=== PATIENT | male | born 1940 ===

== ENCOUNTER 2017-11-04 19:14 | Emergency (ER) | payer MEDICARE ==
--- NOTE | 2017-11-04 20:19 | C.PDOC ---
History Of Present Illness 77-year-old male, whose PMHx includes HTN, presents to the ED for evaluation of injuries to his left frontal and left elbow areas after he sustained a fall at home earlier today. This incident is patient's 5th fall at home within the past month. Patient is currently being evaluated by Dr. Christian from [facility] for advanced dementia. Patient has history of hyponatremia; his recent bloodwork done by Dr. Broussard (Urologist) showed Sodium level of 125. As per his at bedside, patient took his HTN medication this morning. Patient denies loss of consciousness, nausea, vomiting. - HPI Time Seen by Provider: 11/04/17 19:41 Chief Complaint (Nursing): Headache History Per: Patient, Family History/Exam Limitations: no limitations Onset/Duration Of Symptoms: Hrs Injury Occurred (Timing): Just Before Arrival Location Of Injury: Left: Elbow, Head (frontal ) Additional History Per: Patient, Family Past Medical History Reviewed: Historical Data, Nursing Documentation, Vital Signs Vital Signs: Last Vital Signs Temp 98.9 F 11/04/17 19:51 Pulse 110 H 11/04/17 20:33 Resp 16 11/04/17 20:33 BP 166/81 H 11/04/17 20:33 Pulse Ox 97 11/04/17 20:35 - Medical History PMH: Dementia, HTN Surgical History: Cholecystectomy Family History: States: Unknown Family Hx - Social History Hx Alcohol Use: No Hx Substance Use: No - Immunization History Hx Influenza Vaccination: Yes Hx Pneumococcal Vaccination: Yes Review Of Systems Gastrointestinal: Negative for: Nausea, Vomiting Skin: Positive for: Other (injuries to left frontal and left elbow areas after fall ) Neurological: Negative for: Other (LOC ) Physical Exam - Physical Exam Appears: Non-toxic, No Acute Distress, Other (mask-like facial appearance ) Skin: Normal Color, Warm, Dry Head: No Swelling, No Laceration, Other (4x4cm superficial contusion to left frontal area. no active bleeding. ) Eye(s): bilateral: Normal Inspection, PERRL, EOMI Oral Mucosa: Moist Neck: Normal ROM, Supple Chest: Symmetrical, No Deformity, No Tenderness Cardiovascular: Rhythm Regular, No Murmur Respiratory: Normal Breath Sounds, No Rales, No Rhonchi, No Wheezing Gastrointestinal/Abdominal: Soft, No Tenderness Extremity: Tenderness (left elbow ), Capillary Refill (less than 2 seconds ), Deformity (left elbow ), Other (2/4 pitting edema to bilateral lower extremities ) Neurological/Psych: Other (awake, alert, oriented ) ED Course And Treatment - Laboratory Results Result Diagrams: 11/04/17 21:00 11/04/17 21:00 Lab Interpretation: Normal (ua neg.) ECG: Interpreted By Me ECG Rhythm: Sinus Tachycardia ECG Interpretation: Abnormal Rate From EC O2 Sat by Pulse Oximetry: 97 (on RA) Pulse Ox Interpretation: Normal - Radiology CXR: Interpreted by Me CXR Interpretation: Yes: No Acute Disease - Other Rad L elbow X-Ray: Interpreted by Me (no fx/disloc) - CT Scan/US CT Head Other Rad Studies (CT/US): Read By Radiologist, Radiology Report Reviewed CT/US Interpretation: IMPRESSIO. No acute intracranial abnormality. Progress Note: Bloodwork, urinalysis, CXR, CT Head, Left Elbow XR, EKG ordered and reviewed. Motrin PO, Trandate PO and Ultram PO administered. Reevaluation Time: 22:03 Reassessment Condition: Improved Medical Decision Making Medical Decision Making: findings discussed with and daughter @ bedside, Obs/adm offered they feel safe and prefer to take pt home with opt f/u. Disposition Doctor Will See Patient In The: Office Counseled Patient/Family Regarding: Studies Performed, Diagnosis - Disposition Disposition: HOME/ ROUTINE Disposition Time: 22:04 Condition: GOOD Forms: [facility] (Uzbek) - Clinical Impression Clinical Impression: Fall from standing - Scribe Statement The provider has reviewed the documentation as recorded by the Scribe (Shey Galarza) Provider Attestation: All medical record entries made by the Scribe were at my direction and personally dictated by me. I have reviewed the chart and agree that the record accurately reflects my personal performance of the history, physical exam, medical decision making, and the department course for this patient. I have also personally directed, reviewed, and agree with the discharge instructions and disposition.
[2017-11-04 20:34] VITALS: RESP 16
[2017-11-04 21:03] LABS: BASO # 0.1 K/uL (0.0-0.2); BASO % 0.6 % (0.0-2.0); EOS # 0.1 K/uL (0.0-0.7); EOS % 0.8 % (0.0-4.0); HEMOGLOBIN 11.7 g/dL (12.0-18.0); LYMPH % 8.5 % (20.0-40.0); MEAN CELL VOLUME 85.3 fL (80.0-94.0); MEAN CORPUSCULAR HEMOGLOBIN 28.1 pg (27.0-31.0); MEAN PLATELET VOLUME 7.2 fL (7.2-11.7); MONO % 8.9 % (0.0-10.0); NEUT # 9.3 K/uL (1.8-7.0); NEUT % 81.2 % (50.0-75.0); PLATELET COUNT 222 K/uL (130-400); RBC 4.18 Mil/uL (4.40-5.90); RED CELL DISTRIBUTION WIDTH 13.9 % (11.5-14.5); WHITE BLOOD COUNT 11.4 K/uL (4.8-10.8)
[2017-11-04 21:23] LABS: ALB/GLOB RATIO 1.3 (1.0-2.1); ALBUMIN 4.1 g/dL (3.5-5.0); ALT/SGPT 28 U/L (21-72); AST/SGOT 30 U/L (17-59); BLOOD UREA NITROGEN 17 mg/dL (9-20); CALCIUM 8.9 mg/dl (8.6-10.4); GFR AFRICAN-AMERICAN > 60; GFR NON-AFRICAN AMERICAN > 60
[2017-11-04 21:48] LABS: BANDS 1 % (0-2); EOSINOPHIL 1 % (0-4); LYMPHOCYTE 10 % (20-40); MONOCYTE 4 % (0-10); NEUTROPHIL 84 % (50-75); TOTAL CELLS COUNTED 100
[2017-11-04 21:49] LABS: PLATELET ESTIMATE NORMAL (NORMAL)
[2017-11-04 21:50] LABS: HYPOCHROMIC SLIGHT
[2017-11-04 21:51] LABS: SQUAMOUS EPITHIAL < 1 /hpf (0-5); URINE BILIRUBIN NEGATIVE (NEGATIVE); URINE BLOOD NEGATIVE (NEGATIVE); URINE CLARITY Clear (Clear); URINE COLOR Yellow (YELLOW); URINE GLUCOSE (UA) 2+ mg/dL (Normal); URINE LEUKOCYTE ESTERASE NEG Leu/uL (Negative); URINE PROTEIN NEGATIVE (NEGATIVE); URINE UROBILINOGEN NORMAL mg/dL (0.2-1.0)
[2017-11-04 22:25] VITALS: BP 169/84; PULSE 78; TEMP 97.8; O2SAT 96
--- NOTE | 2017-11-05 08:42 | CT ---
PROCEDURE: CT HEAD WITHOUT CONTRAST. HISTORY: falls, L frontal contusion COMPARISON: None available. TECHNIQUE: Axial computed tomography images were obtained through the head/brain without intravenous contrast. Radiation dose: Total exam DLP = 887.15 mGy-cm. This CT exam was performed using one or more of the following dose reduction techniques: Automated exposure control, adjustment of the mA and/or kV according to patient size, and/or use of iterative reconstruction technique. FINDINGS: HEMORRHAGE: No intracranial hemorrhage. BRAIN: There are mild chronic microangiopathic changes. There is no mass, mass effect or abnormal extra-axial fluid collection. There is no territorial infarction. VENTRICLES: There is mild age-related global parenchymal volume loss and proportionate enlargement of the ventricles and cortical sulci. CALVARIUM: There is no calvarial fracture or extracranial soft tissue swelling. PARANASAL SINUSES: There is fluid in the left maxillary sinus. The remaining included paranasal sinuses are clear. MASTOID AIR CELLS: Predominantly clear. OTHER FINDINGS: None. IMPRESSION: No acute intracranial abnormality. Mild chronic microangiopathic changes and mild age-related global parenchymal volume loss. Fluid in the left maxillary sinus which may represent acute sinusitis in the appropriate clinical setting. A preliminary report was provided by [employer].
--- NOTE | 2017-11-05 16:43 | RAD ---
PROCEDURE: CHEST RADIOGRAPH, 1 VIEW HISTORY: SOB COMPARISON: 02/09/2016. FINDINGS: LUNGS: The lungs are well inflated. There is left basilar scarring. PLEURA: No pneumothorax or pleural fluid seen. Stable left pleural thickening. CARDIOVASCULAR: Normal. OSSEOUS STRUCTURES: No significant abnormalities. VISUALIZED UPPER ABDOMEN: Normal. OTHER FINDINGS: None. IMPRESSION: No acute findings.
--- NOTE | 2017-11-05 17:25 | RAD ---
PROCEDURE: Radiographs of the left elbow. HISTORY: L elbow contusion/deform COMPARISON: No prior. FINDINGS: BONES: Bone alignment and mineralization are normal. There is no acute displaced fracture or bone destruction. JOINTS: Normal. No osteoarthritis. SOFT TISSUES: Normal. JOINT EFFUSION: None. OTHER FINDINGS: None IMPRESSION: No acute fracture or dislocation.
--- NOTE | 2017-11-08 12:06 | CARD ---
APPROVED REPORT EKG Measurement Heart [id number] <Conclusion> Sinus tachycardia Minimal voltage criteria for LVH, may be normal variant Inferior infarct, age undetermined Abnormal ECG
== END 2017-11-04 22:25 | disposition home or self-care (01) ==
LOC: C.ER 19:14
DX: S00.83XA Contusion of other part of head, initial encounter (principal); S50.02XA Contusion of left elbow, initial encounter; W19.XXXA Unspecified fall, initial encounter; Y92.009 Unspecified place in unspecified non-institutional (private) residence as the place of occurrence of the external cause

== ENCOUNTER 2017-11-21 17:45 | Emergency (ER) | payer MEDICARE ==
[2017-11-21 18:09] VITALS: RESP 18; O2SAT 97
--- NOTE | 2017-11-21 18:49 | C.PDOC ---
History Of Present Illness 77 y/o male presents to the ED complaining of worsening left arm pain for 2 weeks. Patient states he injured the arm 2 weeks ago, and had x-ray taken at that time, which was negative. Reports he has been wearing the brace with minimal improvement in symptoms. Patient has noticed pain worsens when gripping objects. Denies any re-injury or new pain. No changes in sensation. Time Seen by Provider: 11/21/17 18:15 Chief Complaint (Nursing): Upper Extremity Problem/Injury History Per: Patient History/Exam Limitations: no limitations Onset/Duration Of Symptoms: Days Current Symptoms Are (Timing): Still Present Past Medical History Reviewed: Historical Data, Nursing Documentation, Vital Signs Vital Signs: Last Vital Signs Temp 98.8 F 11/21/17 19:45 Pulse 61 11/21/17 19:45 Resp 18 11/21/17 19:45 BP 160/89 H 11/21/17 19:45 Pulse Ox 97 11/21/17 19:46 - Medical History PMH: Dementia, HTN, Seizures Surgical History: Cholecystectomy Family History: States: Unknown Family Hx - Social History Hx Alcohol Use: No Hx Substance Use: No - Immunization History Hx Influenza Vaccination: Yes Hx Pneumococcal Vaccination: Yes Review Of Systems Except As Marked, All Systems Reviewed And Found Negative. Musculoskeletal: Positive for: Arm Pain Neurological: Negative for: Weakness, Numbness, Incoordination Physical Exam - Physical Exam Appears: Non-toxic, No Acute Distress Skin: Normal Color, Warm, No Rash Head: Atraumatic, Normacephalic Eye(s): bilateral: Normal Inspection Nose: Normal Oral Mucosa: Moist Neck: Normal ROM, Supple Chest: Symmetrical Respiratory: No Accessory Muscle Use Extremity: Normal ROM (with full ROM of left upper extremity), Capillary Refill (< 2 sec), No Deformity, Swelling (mild swelling to the lateral epicondyle) Pulses: Left Radial: Normal, Right Radial: Normal Neurological/Psych: Oriented x3, Normal Speech, Normal Sensation, Other (4/5 facility administrator strength on the left, 5/5 facility administrator strength on the right) ED Course And Treatment O2 Sat by Pulse Oximetry: 97 (RA) Pulse Ox Interpretation: Normal Medical Decision Making Medical Decision Making: Plan: * Repeat x-ray of left elbow X-ray negative for fracture, shows (+) arthritis. Patient counseled regarding imaging results and treatment plan. There is agreement to discharge plan. Disposition Counseled Patient/Family Regarding: Studies Performed, Diagnosis, Need For Followup - Disposition Referrals: [facility] [Outside] Disposition: HOME/ ROUTINE Disposition Time: 19:40 Condition: STABLE Additional Instructions: Follow up with the medical doctor/clinic within 1-2 days without fail. Return if worsened. Prescriptions: Acetaminophen [Tylenol] 325 mg PO Q6 PRN #30 tab PRN Reason: Pain, Mild (1-3) Instructions: Lateral Epicondylitis (DC) Forms: [employer] (French) - POA Present On Arrival: None - Clinical Impression Clinical Impression: Elbow pain - PA / [employer] / Resident Statement MD/DO has reviewed & agrees with the documentation as recorded. - Scribe Statement The provider has reviewed the documentation as recorded by the Scribe (Brittany Moran) All medical record entries made by the Scribe were at my direction and personally dictated by me. I have reviewed the chart and agree that the record accurately reflects my personal performance of the history, physical exam, medical decision making, and the department course for this patient. I have also personally directed, reviewed, and agree with the discharge instructions and disposition.
[2017-11-21 19:50] VITALS: BP 160/89; PULSE 61; TEMP 98.8
--- NOTE | 2017-11-22 08:27 | RAD ---
Date of service: 11/21/2017 PROCEDURE: Radiographs of the left elbow. HISTORY: elbow injury 2 weeks ago, continue pain and swelli COMPARISON: 11/04/2017 FINDINGS: BONES: A radial head/ neck junction fracture subacute appearing is noted intra-articular joint extension present background radiocarpal subarticular cystic arthrosis chronic appearing is noted. Possibility of concomitant capitellar microfractures intra-articular not excluded per series 2, image 1 coronoid process prominent spurring present JOINTS: Arthrosis. No dislocation SOFT TISSUES: Mild subcutaneous reticulated edema suggested. JOINT EFFUSION: Present OTHER FINDINGS: None IMPRESSION: Radial head/ radial head neck junction fracture, subacute appearing - with intra-articular extension. 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 Possible 1 mm depression of the radial head fracture site (series 2, image 1). Also on the same image possible microfracture opposing capitellum (versus mix mineralization attributed to the cystic arthrosis here). Elbow joint effusion Comments: Fracture findings called in to the ER and directly discussed with the Elissa ULRICH on 02/2018 at 8:20 a.m.
== END 2017-11-21 19:50 | disposition home or self-care (01) ==
LOC: C.ER 17:45
DX: M25.522 Pain in left elbow (principal)